=== PATIENT | female | born 1970 | race Caucasian/White ===

== ENCOUNTER → 2016-11-16 | Outpatient (REF) | payer BC, OTHER ==
[~2016-11-16] MED LIST: AMMO12LO EX; CLON0.5T PO; CYMB60CA3 PO; DULO30CA PO; HYOS1TAB SL; KLON0.5T PO; LEVO150T7 PO; PANT40TA2 PO; SYNT150T PO; TRAZ50TA4 PO; VENL75CA47 PO; ZALE10CA PO
[2016-11-16 12:36] LABS: BASO % 0.5 % (0.0-1.0); EOS # 0.1 K/mm3 (0.0-0.50); EOS % 2.1 % (0.0-3.0); LARGE UNSTAINED CELL # 0.1 K/mm3 (0.0-0.4); LARGE UNSTAINED CELL % 2.5 % (0.0-4.0); LYMPH # 0.7 K/mm3 (1.5-4.5); LYMPH % 16.3 % (24.0-44.0); MEAN CORPUSCULAR HEMOGLOBIN 29.8 pg (27.0-33.0); MEAN CORPUSCULAR HGB CONC 33.7 g/dl (32.0-36.5); MEAN CORPUSCULAR VOLUME 88.6 fl (80.0-96.0); MONO # 0.3 K/mm3 (0.0-0.8); NEUTROPHILS # 3.1 K/mm3 (1.8-7.7); NEUTROPHILS % 71.5 % (36.0-66.0); PLATELET COUNT, AUTOMATED 295 k/mm3 (150-450); RED CELL DISTRIBUTION WIDTH 13.3 % (11.5-14.5); WHITE BLOOD COUNT 4.3 K/mm3 (4.0-10.0)
[2016-11-16 13:30] LABS: ALBUMIN/GLOBULIN RATIO 1.14 (1.00-1.93); ALKALINE PHOSPHATASE 70 U/L (45-117); ALT/SGPT 18 U/L (12-78); ANION GAP 9 MEQ/L (8-16); AST/SGOT 10 U/L (15-37); BILIRUBIN,TOTAL 0.4 MG/DL (0.2-1.0); BLOOD UREA NITROGEN 26 MG/DL (7-18); CALCIUM LEVEL 8.6 MG/DL (8.5-10.1); CARBON DIOXIDE LEVEL 24 MEQ/L (21-32); CHLORIDE LEVEL 108 MEQ/L (98-107); CHOLESTEROL LEVEL 222 MG/DL (<200); CREATININE FOR GFR 0.74 MG/DL (0.55-1.02); FREE T4 1.52 NG/DL (0.76-1.46); GLOMERULAR FILTRATION RATE > 60.0 (>58); GLUCOSE, FASTING 85 MG/DL (70-105); POTASSIUM SERUM 4.2 MEQ/L (3.5-5.1); SODIUM LEVEL 141 MEQ/L (136-145); TOTAL PROTEIN 7.5 GM/DL (6.4-8.2); TRIGLYCERIDES LEVEL 76 MG/DL (<150)
== END | disposition home or self-care (01) ==
LOC: M LABDRAW1 11:57
PROVIDERS: ATTEND Emergency Medicine
DX: E03.9 Hypothyroidism, unspecified (principal)

== ENCOUNTER → 2016-12-22 | Outpatient (CLI) | payer OTHER ==
--- NOTE | 2016-12-26 17:04 | REP ---
Clinical: Right lower quadrant pain. Technique: Transabdominal pelvic ultrasound followed by transvaginal examination for better evaluation of the endometrium and adnexa. Findings: Bladder is normal and measures 9.1 x 7.0 x 8.0 cm. The patient is status post hysterectomy and likely oophorectomy as the ovaries are not visualized. No pelvic fluid, collection or mass lesion identified. Impression: Status post hysterectomy. Ovaries not visualized. No fluid, collection or mass lesion appreciated.
== END | disposition home or self-care (01) ==
LOC: M WHC 08:07
PROVIDERS: ATTEND Nurse Practitioner Family
DX: R10.31 Right lower quadrant pain (principal); Z90.710 Acquired absence of both cervix and uterus

== ENCOUNTER → 2017-07-12 | Outpatient (REF) | payer OTHER ==
[~2017-07-12] MED LIST changes: +TRAZ50TA11 PO; -TRAZ50TA4 PO
[2017-07-12 13:02] LABS: BASO % 0.5 % (0.0-1.0); EOS # 0.2 K/mm3 (0.0-0.50); EOS % 3.3 % (0.0-3.0); LARGE UNSTAINED CELL # 0.1 K/mm3 (0.0-0.4); LARGE UNSTAINED CELL % 1.4 % (0.0-4.0); LYMPH # 0.8 K/mm3 (1.5-4.5); LYMPH % 16.6 % (24.0-44.0); MEAN CORPUSCULAR HEMOGLOBIN 29.5 pg (27.0-33.0); MEAN CORPUSCULAR HGB CONC 32.3 g/dl (32.0-36.5); MEAN CORPUSCULAR VOLUME 91.4 fl (80.0-96.0); MONO # 0.2 K/mm3 (0.0-0.8); NEUTROPHILS # 3.3 K/mm3 (1.8-7.7); NEUTROPHILS % 73.2 % (36.0-66.0); PLATELET COUNT, AUTOMATED 268 k/mm3 (150-450); RED CELL DISTRIBUTION WIDTH 13.6 % (11.5-14.5); WHITE BLOOD COUNT 4.5 K/mm3 (4.0-10.0)
[2017-07-12 14:30] LABS: ALBUMIN 3.5 GM/DL (3.2-5.2); ALBUMIN/GLOBULIN RATIO 1.03 (1.00-1.93); ALKALINE PHOSPHATASE 68 U/L (45-117); ALT/SGPT 18 U/L (12-78); ANION GAP 10 MEQ/L (8-16); AST/SGOT 9 U/L (15-37); BILIRUBIN,TOTAL 0.5 MG/DL (0.2-1.0); BLOOD UREA NITROGEN 17 MG/DL (7-18); CALCIUM LEVEL 8.4 MG/DL (8.5-10.1); CARBON DIOXIDE LEVEL 25 MEQ/L (21-32); CHLORIDE LEVEL 105 MEQ/L (98-107); CHOLESTEROL LEVEL 214 MG/DL (<200); FREE T4 0.95 NG/DL (0.76-1.46); GLOMERULAR FILTRATION RATE > 60.0 (>58); GLUCOSE, FASTING 80 MG/DL (70-105); POTASSIUM SERUM 4.5 MEQ/L (3.5-5.1); SODIUM LEVEL 140 MEQ/L (136-145); TOTAL PROTEIN 6.9 GM/DL (6.4-8.2); TRIGLYCERIDES LEVEL 112 MG/DL (<150)
== END ==
LOC: M LABDRAW1 10:22
PROVIDERS: ATTEND Emergency Medicine
DX: E03.9 Hypothyroidism, unspecified (principal); R53.83 Other fatigue

== ENCOUNTER → 2017-08-21 | Outpatient (REF) | payer OTHER | LOC: M SFHCWAGY 13:07 | PROVIDERS: ATTEND Nurse Practitioner Family | DX: A60.04 Herpesviral vulvovaginitis (principal); R30.0 Dysuria ==

== ENCOUNTER → 2017-10-02 | Outpatient (REF) | payer OTHER ==
[2017-10-02 12:57] LABS: FREE T4 1.2 NG/DL (0.76-1.46)
== END ==
LOC: M LABDRAW1 10:42
PROVIDERS: ATTEND Emergency Medicine
DX: E03.9 Hypothyroidism, unspecified (principal)

== ENCOUNTER → 2017-11-16 | Outpatient (REF) | payer OTHER ==
[2017-11-16 12:58] LABS: C REACTIVE PROTEIN QUANTITATIV 0.39 MG/DL (0.00-0.30)
[2017-11-16 12:58] LABS: RHEUMATOID FACTOR QUANT < 10.0 IU/ML (0-15.0)
[2017-11-16 13:07] LABS: BASO % 0.7 % (0.0-1.0); EOS # 0.2 10^3/uL (0.0-0.50); EOS % 2.6 % (0.0-3.0); HEMATOCRIT 35.8 % (36.0-47.0); HEMOGLOBIN 11.6 g/dl (12.0-16.0); IMMATURE GRANULOCYTE % 0.3 % (0-0); LYMPH # 0.9 10^3/uL (1.5-4.5); LYMPH % 14.1 % (24.0-44.0); MEAN CORPUSCULAR HEMOGLOBIN 28.9 pg (27.0-33.0); MEAN CORPUSCULAR HGB CONC 32.4 g/dl (32.0-36.5); MEAN CORPUSCULAR VOLUME 89.1 fl (80.0-96.0); MONO # 0.4 10^3/uL (0.0-0.8); MONO % 6.9 % (0.0-5.0); NEUTROPHILS # 4.6 10^3/uL (1.8-7.7); NEUTROPHILS % 75.4 % (36.0-66.0); PLATELET COUNT, AUTOMATED 292 10^3/uL (150-450); RED BLOOD COUNT 4.02 10^6/uL (4.00-5.40); RED CELL DISTRIBUTION WIDTH 13.5 % (11.5-14.5); WHITE BLOOD COUNT 6.1 10^3/uL (4.0-10.0)
[2017-11-16 13:54] LABS: ERYTHROCYTE SEDIMENTATION RATE 14 mm/hr (0-20)
[2017-11-18 00:07] LABS: ANA (HEP2) Positive (.)
== END ==
LOC: M LABDRAW1 11:44
DX: M25.549 Pain in joints of unspecified hand (principal)
CPT/HCPCS: 36415

== ENCOUNTER → 2018-08-20 | Outpatient (REF) | payer BC ==
[2018-08-20 12:44] LABS: BASO % 0.8 % (0.0-1.0); EOS # 0.1 10^3/uL (0.0-0.50); EOS % 2.8 % (0.0-3.0); HEMATOCRIT 37.3 % (36.0-47.0); HEMOGLOBIN 12.1 g/dl (12.0-15.5); IMMATURE GRANULOCYTE % 0.8 % (0-3.0); LYMPH # 0.8 10^3/uL (1.5-4.5); LYMPH % 16.7 % (24.0-44.0); MEAN CORPUSCULAR HEMOGLOBIN 29.1 pg (27.0-33.0); MEAN CORPUSCULAR HGB CONC 32.4 g/dl (32.0-36.5); MEAN CORPUSCULAR VOLUME 89.7 fl (80.0-96.0); MONO # 0.4 10^3/uL (0.0-0.8); MONO % 8.2 % (0.0-5.0); NEUTROPHILS # 3.6 10^3/uL (1.8-7.7); NEUTROPHILS % 70.7 % (36.0-66.0); PLATELET COUNT, AUTOMATED 323 10^3/uL (150-450); RED BLOOD COUNT 4.16 10^6/uL (4.00-5.40); RED CELL DISTRIBUTION WIDTH 13.5 % (11.5-14.5)
[2018-08-20 13:05] LABS: ALBUMIN 3.8 GM/DL (3.2-5.2); ALBUMIN/GLOBULIN RATIO 1.03 (1.00-1.93); ALKALINE PHOSPHATASE 75 U/L (45-117); ALT/SGPT 19 U/L (12-78); ANION GAP 5 MEQ/L (8-16); AST/SGOT 10 U/L (7-37); BILIRUBIN,TOTAL 0.5 MG/DL (0.2-1.0); BLOOD UREA NITROGEN 16 MG/DL (7-18); CALCIUM LEVEL 8.8 MG/DL (8.5-10.1); CARBON DIOXIDE LEVEL 27 MEQ/L (21-32); CHLORIDE LEVEL 108 MEQ/L (98-107); CHOLESTEROL LEVEL 196 MG/DL (<200); CHOLESTEROL RISK RATIO 4.454 (<5); CREATININE FOR GFR 0.67 MG/DL (0.55-1.30); FREE T4 1.37 NG/DL (0.76-1.46); GLOMERULAR FILTRATION RATE > 60.0 (>58); GLUCOSE, FASTING 83 MG/DL (70-100); HDL CHOLESTEROL 44 MG/DL (>40); LDL CHOLESTEROL 134 MG/DL (<100); NON-HDL-C 152 MG/DL; POTASSIUM SERUM 4.8 MEQ/L (3.5-5.1); SODIUM LEVEL 140 MEQ/L (136-145); THYROID STIMULATING HORMONE 0.094 uIU/ML (0.358-3.740); TOTAL PROTEIN 7.5 GM/DL (6.4-8.2); TRIGLYCERIDES LEVEL 88 MG/DL (<150)
== END ==
LOC: M LABDRAW1 11:40
DX: E03.9 Hypothyroidism, unspecified (principal); R00.2 Palpitations

== ENCOUNTER → 2018-11-12 | Outpatient (CLI) | payer BC ==
[~2018-11-12] MED LIST changes: -CLON0.5T PO; +CLON0.5T8 PO; -PANT40TA2 PO; +PANT40TA3 PO; +TRAZ-160 PO; -TRAZ50TA11 PO
--- NOTE | 2018-11-12 10:46 | REP ---
LUMBAR SPINE, FIVE VIEWS: HISTORY: Back pain. Three is no acute fracture or subluxation. The L3-4 and L4-5 intervertebral discs are decreased in height consistent with disc degeneration. There is narrowing of the L5-S1 facet joints. IMPRESSION: Degenerative change as described above. Electronically Signed by Nirmal Marroquin MD 11/12/2018 11:28 A
== END ==
LOC: M WUC 10:14
PROVIDERS: ATTEND Physician Assistant
DX: M51.37 Other intervertebral disc degeneration, lumbosacral region (principal)

== ENCOUNTER → 2018-11-18 | Outpatient (REF) | payer BC ==
[2018-11-18 13:54] LABS: FREE T4 1.26 NG/DL (0.76-1.46); THYROID STIMULATING HORMONE 0.523 uIU/ML (0.358-3.740)
== END ==
LOC: M SFHCADAM 11:13
PROVIDERS: ATTEND Family Medicine
DX: E03.9 Hypothyroidism, unspecified (principal)

== ENCOUNTER → 2018-11-19 | Outpatient (REF) | payer BC | LOC: M SFHCWAGY 08:28 | PROVIDERS: ATTEND Nurse Practitioner Family | DX: Z12.72 Encounter for screening for malignant neoplasm of vagina (principal) ==

== ENCOUNTER → 2018-11-19 | Outpatient (CLI) | payer BC ==
--- NOTE | 2018-11-19 12:23 | REPMRS ---
Patient History The patient states she had a clinical breast exam in 11/2018. Patient is postmenopausal. Family history of colorectal cancer at age 50 or over in paternal grandfather, breast cancer at age 62 in mother. Digital Woman Screen Mammo: November 19, 2018 - Exam #: [id number] Bilateral CC and MLO view(s) were taken. Technologist: Amaya Gao Technologist Prior study comparison: November 21, 2016, bilateral digital woman screen mammo, performed at [facility]. April 09, 2015, bilateral digital woman screen mammo, performed at [facility]. May 29, 2012, digital woman screen mammo performed at [facility]. FINDINGS: The breast tissue is heterogeneously dense. This may lower the sensitivity of mammography. There is a moderate amount of heterogeneously dense fibroglandular tissue which is fairly symmetric. There is no interval development of dominant mass, architectural distortion, or clustered microcalcification typical of malignancy. There has been no change in the appearance of the mammogram from the prior studies. 3-D tomosynthesis shows no additional findings. Assessment: BI-RADS/ACR category 1 mammogram. Negative. Recommendation Routine screening mammogram of both breasts in 1 year (for women over age 40). This patient's Lifetime Breast Cancer RIsk is estimated at 17.4 %. This mammogram was interpreted with the aid of an FDA-approved computer-aided dectection system. Electronically Signed By: Car Harrison MD 11/19/18 [id number]
== END ==
LOC: M WHC 08:00
PROVIDERS: ATTEND Nurse Practitioner Family
DX: Z12.31 Encounter for screening mammogram for malignant neoplasm of breast (principal); Z80.3 Family history of malignant neoplasm of breast; Z80.0 Family history of malignant neoplasm of digestive organs; N60.31 Fibrosclerosis of right breast; N60.32 Fibrosclerosis of left breast

== ENCOUNTER → 2019-01-14 | Outpatient (CLI) | payer BC | LOC: M OUTALCOH 08:06 | PROVIDERS: ATTEND Psychiatry & Neurology Psychiatry | DX: F10.20 Alcohol dependence, uncomplicated (principal) ==

== ENCOUNTER 2019-01-21 08:51 | Outpatient (RCR) | payer BC | END 2019-02-02 | LOC: M OUTALCOH 08:51 | PROVIDERS: ATTEND Psychiatry & Neurology Psychiatry | DX: Z03.89 Encounter for observation for other suspected diseases and conditions ruled out (principal) ==

== ENCOUNTER → 2019-03-18 | Outpatient (REF) | payer BC ==
[~2019-03-18] MED LIST changes: -DULO30CA PO; +DULO30CA9 PO
[2019-03-18 12:34] LABS: HEMATOCRIT 36.8 % (36.0-47.0); HEMOGLOBIN 11.6 g/dl (12.0-15.5); MEAN CORPUSCULAR HEMOGLOBIN 28.4 pg (27.0-33.0); MEAN CORPUSCULAR HGB CONC 31.5 g/dl (32.0-36.5); MEAN CORPUSCULAR VOLUME 90.2 fl (80.0-96.0); PLATELET COUNT, AUTOMATED 284 10^3/uL (150-450); RED BLOOD COUNT 4.08 10^6/uL (4.00-5.40); WHITE BLOOD COUNT 5.2 10^3/uL (4.0-10.0)
[2019-03-18 13:10] LABS: ALBUMIN 3.5 GM/DL (3.2-5.2); ALT/SGPT 17 U/L (12-78); BILIRUBIN,TOTAL 0.3 MG/DL (0.2-1.0); BLOOD UREA NITROGEN 14 MG/DL (7-18); CALCIUM LEVEL 8.3 MG/DL (8.5-10.1); CARBON DIOXIDE LEVEL 27 MEQ/L (21-32); CHLORIDE LEVEL 107 MEQ/L (98-107); CREATININE FOR GFR 0.65 MG/DL (0.55-1.30); GLOMERULAR FILTRATION RATE > 60.0 (>58); GLUCOSE, FASTING 91 MG/DL (70-100); POTASSIUM SERUM 4.8 MEQ/L (3.5-5.1); SODIUM LEVEL 140 MEQ/L (136-145); TOTAL PROTEIN 7.2 GM/DL (6.4-8.2)
== END ==
LOC: M SFHCADAM 08:10
PROVIDERS: ATTEND Family Medicine
DX: E66.9 Obesity, unspecified (principal); E03.9 Hypothyroidism, unspecified

== ENCOUNTER → 2019-03-21 | Outpatient (REF) | payer BC ==
[2019-03-21 14:24] LABS: FREE T4 1.39 NG/DL (0.76-1.46); THYROID STIMULATING HORMONE 0.271 uIU/ML (0.358-3.740)
== END ==
LOC: M SFHCADAM 08:00
PROVIDERS: ATTEND Family Medicine
DX: R79.89 Other specified abnormal findings of blood chemistry (principal)

== ENCOUNTER → 2019-04-14 | Outpatient (CLI) | payer BC ==
[~2019-04-14] MED LIST changes: -TRAZ-160 PO; +TRAZ-252 PO
--- NOTE | 2019-04-14 13:40 | REP ---
Bilateral hand series: Eight views. History: Primary osteoarthritis. Findings: Overall mineralization pattern is normal. On the left, there is osteoarthritic narrowing and spurring at the first carpometacarpal articulation. Minimal spurring is seen at the IP joint of the thumb. There is osteoarthritic spurring at the DIP joints of the index, ring, and small finger with joint space narrowing at these articulations. No erosive change is seen. On the right, there are fairly prominent osteophytes formed at the DIP joint of the small finger. Minimal spurring is seen at the DIP joint of the index finger and the IP joint of the thumb. There is mild spurring at the MCP joint of the thumb on the right side as well. No erosive changes are seen. IMPRESSION: Bilateral osteoarthritic changes as noted above. Electronically Signed by Jay Harrison MD 04/14/2019 03:47 P
--- NOTE | 2019-04-14 13:43 | REP ---
SI joint series: Four views. History: Degenerative disc disease in the lumbar spine. Findings: There is minimal sclerosis and osteoarthritic spurring bilaterally. No erosive changes seen. There is a small subcortical cyst on the iliac side of each SI joint. Sacrum and SI joints are otherwise intact. Femoral heads are smooth and rounded and hip joint spaces are preserved. Symphysis pubis appears intact as visualized. Impression: Mild osteoarthritic changes. No erosive change. Electronically Signed by Jay Harrison MD 04/14/2019 03:48 P
== END ==
LOC: M ADAMS 11:06
PROVIDERS: ATTEND Internal Medicine Rheumatology
DX: M51.36 Other intervertebral disc degeneration, lumbar region (principal); M19.042 Primary osteoarthritis, left hand; M19.041 Primary osteoarthritis, right hand; M25.78 Osteophyte, vertebrae

== ENCOUNTER → 2019-04-14 | Outpatient (REF) | payer BC ==
[2019-04-17 00:06] LABS: ANA (HEP2) Positive (.); CYCLIC CITRULLINATED PEPTIDE 7 units (0-19); SSA SJOGRENS A <0.2 AI (0.0-0.9); SSB SJOGRENS B <0.2 AI (0.0-0.9)
== END ==
LOC: M SFHCPLAZ 11:07 → M SFHCADAM 11:12
PROVIDERS: ATTEND Internal Medicine Rheumatology
DX: R76.8 Other specified abnormal immunological findings in serum (principal)

== ENCOUNTER → 2019-05-26 | Outpatient (REF) | payer BC ==
[2019-05-26 13:22] LABS: FREE T4 1.12 NG/DL (0.76-1.46); THYROID STIMULATING HORMONE 0.38 uIU/ML (0.358-3.740)
== END ==
LOC: M SFHCADAM 10:08
PROVIDERS: ATTEND Family Medicine
DX: E03.9 Hypothyroidism, unspecified (principal)

== ENCOUNTER → 2019-11-02 | Outpatient (REF) | payer BC ==
[~2019-11-02] MED LIST changes: +CLON0.5T2 PO; -CLON0.5T8 PO
== END ==
LOC: M LAB REF 13:10
PROVIDERS: ATTEND Physician Assistant
DX: N39.0 Urinary tract infection, site not specified (principal)

== ENCOUNTER → 2020-03-30 | Outpatient (REF) | payer BC | LOC: M SFHCADAM 09:34 | PROVIDERS: ATTEND Family Medicine | DX: Z00.00 Encounter for general adult medical examination without abnormal findings (principal); F41.9 Anxiety disorder, unspecified ==

== ENCOUNTER → 2020-04-15 | Outpatient (CLI) | payer BC | LOC: M LABSMTC 13:21 | PROVIDERS: ATTEND Pediatrics | DX: Z03.818 Encounter for observation for suspected exposure to other biological agents ruled out (principal); Z11.59 Encounter for screening for other viral diseases ==

== ENCOUNTER → 2020-06-16 | Outpatient (REF) | payer BC ==
[~2020-06-16] MED LIST changes: +PANT40TA29 PO; -PANT40TA3 PO
[2020-07-29 08:53] LABS: FREE T4 1.32 NG/DL (0.76-1.46); THYROID STIMULATING HORMONE 0.918 uIU/ML (0.358-3.740)
== END ==
LOC: M SFHCADAM 12:55
PROVIDERS: ATTEND Family Medicine
DX: E03.9 Hypothyroidism, unspecified (principal)

== ENCOUNTER → 2020-07-29 | Outpatient (CLI) | payer BC ==
--- NOTE | 2020-08-04 11:33 | REP ---
BILATERAL MAMMOGRAM WITH 3D TOMOSYNTHESIS, DIAGNOSTIC MAMMOGRAM LEFT BREAST AND LEFT BREAST ULTRASOUND HISTORY: Family history of breast cancer at age 62 in mother. Tyrer-Cuzick lifetime risk of breast cancer 17.1%. Sore palpable lump upper outer quadrant left breast for two days. COMPARISON: Mammogram 11/19/2018, as well as other prior exams. TECHNIQUE: MLO and CC views of the breasts are performed with 3D tomosynthesis. Additional spot compression views of the left breast are performed at the site of the palpable lump in the upper outer quadrant of the left breast. The area is marked on the skin with a triangular marker. FINDINGS: Moderate fibroglandular tissue is seen bilaterally in a fairly symmetrical pattern. Volpara breast density is B. I see no evidence of mass in either breast. There is no architectural distortion. No clustered microcalcifications are seen. Real-time sonographic evaluation of the left breast is performed at the site of the palpable lump in the upper outer quadrant. At about 3 o'clock, there is a 9- mm cyst corresponding to the palpable abnormality. No other cystic or solid nodule is seen. IMPRESSION: ACR 2 benign. There is no mammographic evidence of mass or suspicious clusters of microcalcifications. At the site of the palpable lump laterally in the left breast at about 3 o'clock, there is a 9-mm cyst with no other sonographic abnormality. The finding is benign. Recommend follow-up mammogram in one year. This mammogram was interpreted with the aid of an FDA approved computer-aided detection system. The patient states her last clinical breast exam was 07/2020. Patient letter: 2. ESTEFANIA
== END ==
LOC: M WHC 14:01
PROVIDERS: ATTEND Nurse Practitioner Family
DX: N63.21 Unspecified lump in the left breast, upper outer quadrant (principal); Z80.3 Family history of malignant neoplasm of breast
CPT/HCPCS: 76642; 77066; G0279

== ENCOUNTER → 2020-11-19 | Outpatient (REF) | payer BC ==
[2020-11-19 13:00] LABS: BASO % 0.4 % (0.0-1.0); EOS # 0.1 10^3/uL (0.0-0.5); EOS % 2.7 % (0.0-3.0); HEMATOCRIT 38.5 % (36.0-47.0); HEMOGLOBIN 12.3 g/dl (12.0-15.5); LYMPH # 0.8 10^3/uL (1.5-5.0); LYMPH % 14.4 % (24.0-44.0); MEAN CORPUSCULAR HEMOGLOBIN 28.9 pg (27.0-33.0); MEAN CORPUSCULAR HGB CONC 31.9 g/dl (32.0-36.5); MEAN CORPUSCULAR VOLUME 90.6 fl (80.0-96.0); MONO # 0.4 10^3/uL (0.0-0.8); MONO % 8.3 % (0.0-5.0); NEUTROPHILS # 3.9 10^3/uL (1.5-8.5); NEUTROPHILS % 73.8 % (36.0-66.0); PLATELET COUNT, AUTOMATED 266 10^3/uL (150-450); RED BLOOD COUNT 4.25 10^6/uL (4.00-5.40); WHITE BLOOD COUNT 5.3 10^3/uL (4.0-10.0)
[2020-11-19 13:37] LABS: ALT/SGPT 28 U/L (12-78); BILIRUBIN,TOTAL 0.4 MG/DL (0.2-1.0); BLOOD UREA NITROGEN 18 MG/DL (7-18); CALCIUM LEVEL 8.8 MG/DL (8.5-10.1); CARBON DIOXIDE LEVEL 28 MEQ/L (21-32); CHLORIDE LEVEL 104 MEQ/L (98-107); CHOLESTEROL LEVEL 212 MG/DL (<200); CHOLESTEROL RISK RATIO 3.072 (<5); CREATININE FOR GFR 0.87 MG/DL (0.55-1.30); GLOMERULAR FILTRATION RATE > 60.0 (>51); GLUCOSE, FASTING 87 MG/DL (70-100); HDL CHOLESTEROL 69 MG/DL (>40); LDL CHOLESTEROL 124 MG/DL (<100); NON-HDL-C 143 MG/DL; POTASSIUM SERUM 4.5 MEQ/L (3.5-5.1); SODIUM LEVEL 138 MEQ/L (136-145); TOTAL PROTEIN 7.6 GM/DL (6.4-8.2); TRIGLYCERIDES LEVEL 94 MG/DL (<150)
== END ==
LOC: M SFHCADAM 08:52
PROVIDERS: ATTEND Family Medicine
DX: E03.9 Hypothyroidism, unspecified (principal); E66.9 Obesity, unspecified; R53.83 Other fatigue

== ENCOUNTER → 2021-03-10 | Outpatient (REF) | payer BC | LOC: M SFHCADAM 07:53 | PROVIDERS: ATTEND Family Medicine | DX: E03.9 Hypothyroidism, unspecified (principal) ==

== ENCOUNTER → 2021-04-27 | Outpatient (CLI) | payer BC ==
--- NOTE | 2021-04-28 15:39 | SLEEPCENT ---
NOCTURNAL POLYSOMNOGRAPHY DATE: 04/27/2021 ORDERED BY: EVELYN Brambila Nocturnal polysomnography was performed for evaluation of sleep physiology in this patient with a history of excessive somnolence, irregular breathing in sleep and nonrestorative sleep. Eight hours and 15 minutes of data were reviewed. There were 443.5 minutes of sleep identified. Sleep latency was normal at 13.5 minutes. REM latency was normal at 100.5 minutes. Sleep architecture showed fragmentation. There were three REM cycles noted. Overall sleep efficiency was 90.5%. The electrocardiogram showed a sinus rhythm with an average heart rate of 60 beats per minute. Rate ranged 50 to 90 beats per minute. EEG showed reasonably normal waveforms for wake and sleep. There were 95 respiratory events identified of 10 seconds in duration or greater for an apnea-hypopnea index of 12.9. The events were primarily obstructive, 15 mixed and central apneas noted. Respiratory events were not exclusive to sleep stage nor body posture. Arousals from respiratory events occurred 6.5 times per hour and oxygen desaturations were seen into the 80s. There was some minor limb activity. No trains of events identified. IMPRESSIONS: Obstructive sleep apnea syndrome (G47.33). Apnea-hypopnea index 12.9. RECOMMENDATION: The patient should be encouraged to return to [facility]. In the interim alcohol and sedative avoidance should be practiced and caution exercised during the operation of motor vehicles. cc: ARABELLA CHOW DO
== END ==
LOC: M SLEEP 20:00
PROVIDERS: ATTEND Physician Assistant
DX: R40.0 Somnolence (principal)

== ENCOUNTER → 2021-05-05 | Outpatient (REF) | payer BC | LOC: M WUC 15:37 | PROVIDERS: ATTEND Physician Assistant | DX: N39.0 Urinary tract infection, site not specified (principal) ==

== ENCOUNTER → 2021-06-20 | Outpatient (REF) | payer BC ==
[2021-06-20 13:21] LABS: FREE T4 1.26 NG/DL (0.76-1.46); THYROID STIMULATING HORMONE 0.367 uIU/ML (0.358-3.740)
== END ==
LOC: M SFHCADAM 09:29
PROVIDERS: ATTEND Family Medicine
DX: E03.9 Hypothyroidism, unspecified (principal)

== ENCOUNTER → 2021-11-14 | Outpatient (REF) | payer BC ==
[~2021-11-14] MED LIST changes: -CYMB60CA3 PO; +CYMB60CA4 PO
== END ==
LOC: M SFHCADAM 12:42
PROVIDERS: ATTEND Family Medicine
DX: R35.0 Frequency of micturition (principal)

== ENCOUNTER → 2021-11-16 | Outpatient (REF) | payer BC ==
[2021-11-16 12:54] LABS: BASO % 0.8 % (0.0-1.0); HEMATOCRIT 37.9 % (36.0-47.0); HEMOGLOBIN 12.1 g/dl (12.0-15.5); LYMPH % 19.7 % (24.0-44.0); MEAN CORPUSCULAR HEMOGLOBIN 30.3 pg (27.0-33.0); MEAN CORPUSCULAR HGB CONC 31.9 g/dl (32.0-36.5); MONO # 0.4 10^3/uL (0.0-0.8); MONO % 8.4 % (2.0-8.0); NEUTROPHILS # 3.4 10^3/uL (1.5-8.5); NEUTROPHILS % 70.5 % (36.0-66.0); PLATELET COUNT, AUTOMATED 266 10^3/uL (150-450); RED BLOOD COUNT 3.99 10^6/uL (4.00-5.40); WHITE BLOOD COUNT 4.9 10^3/uL (4.0-10.0)
[2021-11-16 14:07] LABS: ALBUMIN 3.8 GM/DL (3.2-5.2); ALT/SGPT 23 U/L (12-78); BILIRUBIN,TOTAL 0.4 MG/DL (0.2-1.0); BLOOD UREA NITROGEN 18 MG/DL (7-18); CALCIUM LEVEL 8.7 MG/DL (8.5-10.1); CARBON DIOXIDE LEVEL 27 MEQ/L (21-32); CHLORIDE LEVEL 107 MEQ/L (98-107); CHOLESTEROL LEVEL 216 MG/DL (<200); CHOLESTEROL RISK RATIO 4.075 (<5); CREATININE FOR GFR 0.92 MG/DL (0.55-1.30); GLOMERULAR FILTRATION RATE > 60.0 (>51); GLUCOSE, FASTING 97 MG/DL (70-100); HDL CHOLESTEROL 53 MG/DL (>40); LDL CHOLESTEROL 142 MG/DL (<100); NON-HDL-C 163 MG/DL; POTASSIUM SERUM 4.4 MEQ/L (3.5-5.1); SODIUM LEVEL 141 MEQ/L (136-145); TOTAL PROTEIN 7.5 GM/DL (6.4-8.2); TRIGLYCERIDES LEVEL 103 MG/DL (<150)
== END ==
LOC: M SFHCADAM 11:16
PROVIDERS: ATTEND Family Medicine
DX: Z00.00 Encounter for general adult medical examination without abnormal findings (principal); R35.0 Frequency of micturition

== ENCOUNTER 2021-12-12 21:30 | Emergency (ER) | payer BC ==
[~2021-12-12] VITALS: Ht 167.6 cm; Wt 88.6 kg
[2021-12-13 00:13] VITALS: BP 139/67
== END 2021-12-13 01:58 | disposition home or self-care (01) ==
LOC: M ED 21:30
DX: H66.019 Acute suppurative otitis media with spontaneous rupture of ear drum, unspecified ear (principal); F10.10 Alcohol abuse, uncomplicated

== ENCOUNTER → 2022-08-17 | Outpatient (REF) | payer BC ==
[2022-08-17 14:47] LABS: FREE T4 1.42 NG/DL (0.76-1.46); THYROID STIMULATING HORMONE 1.31 uIU/ML (0.358-3.740)
== END ==
LOC: M SFHCADAM 12:28
PROVIDERS: ATTEND Family Medicine
DX: E03.9 Hypothyroidism, unspecified (principal)

== ENCOUNTER → 2022-12-25 | Outpatient (CLI) | payer BC ==
[~2022-12-25] MED LIST changes: +D-101000 PO; +FLUO20CA22 PO; +LEVO125T4 PO
== END ==
LOC: M LABSMTC 08:18
PROVIDERS: ATTEND Anesthesiology
DX: Z01.812 Encounter for preprocedural laboratory examination (principal); Z11.52 Encounter for screening for COVID-19

== ENCOUNTER 2022-12-27 08:23 | Day surgery (SDC) | payer BC ==
[~2022-12-27] VITALS: Ht 167.6 cm; Wt 78.5 kg
[~2022-12-27 08:23] MED LIST changes: +NS 1,000 ML IV ONE
[2022-12-27] MEDS ORDERED: LIDOCAINE 2% 100MG/5ML SDV (FOR ANES.) As Ordered ONE (09:32)
[2022-12-27] MEDS ORDERED: propofoL 200 MG/20 ML VIAL As Ordered ONE ×2 (09:32→09:43)
[2022-12-27 10:17] VITALS: BP 108/67
== END 2022-12-27 10:31 | disposition home or self-care (01) ==
LOC: M OPP 08:23
PROVIDERS: ATTEND Surgery
DX: Z12.11 Encounter for screening for malignant neoplasm of colon (principal); K63.5 Polyp of colon; K64.0 First degree hemorrhoids; G47.33 Obstructive sleep apnea (adult) (pediatric); E03.9 Hypothyroidism, unspecified; F32.9 Major depressive disorder, single episode, unspecified; F41.9 Anxiety disorder, unspecified; Z99.89 Dependence on other enabling machines and devices; Z79.891 Long term (current) use of opiate analgesic; Z79.899 Other long term (current) drug therapy

== ENCOUNTER → 2023-04-24 | Outpatient (REF) | payer BC ==
[~2023-04-24] MED LIST changes: -NS 1,000 ML IV ONE
[2023-04-24 18:01] LABS: BASO # 0.1 10^3/uL (0.0-0.2); BASO % 0.8 % (0.0-1.0); EOS # 0.1 10^3/uL (0.0-0.5); HEMATOCRIT 40.9 % (36.0-47.0); LYMPH % 15.7 % (24.0-44.0); MEAN CORPUSCULAR HEMOGLOBIN 30.7 pg (27.0-33.0); MEAN CORPUSCULAR HGB CONC 31.8 g/dl (32.0-36.5); MEAN CORPUSCULAR VOLUME 96.7 fl (80.0-96.0); MONO # 0.4 10^3/uL (0.0-0.8); MONO % 6.9 % (2.0-8.0); NEUTROPHILS # 4.5 10^3/uL (1.5-8.5); NEUTROPHILS % 73.8 % (36.0-66.0); PLATELET COUNT, AUTOMATED 336 10^3/uL (150-450); RED BLOOD COUNT 4.23 10^6/uL (4.00-5.40); WHITE BLOOD COUNT 6.1 10^3/uL (4.0-10.0)
[2023-04-24 18:18] LABS: ALBUMIN 4.2 G/DL (3.2-5.2); ALKALINE PHOSPHATASE 80 U/L (46-116); ALT/SGPT 15 U/L (7.0-40); AST/SGOT 10 U/L (<34); BILIRUBIN,TOTAL 0.4 MG/DL (0.3-1.2); BLOOD UREA NITROGEN 20 MG/DL (9-23); CARBON DIOXIDE LEVEL 27 MMOL/L (20-31); CHLORIDE LEVEL 104 MMOL/L (98-107); CHOLESTEROL LEVEL 213 MG/DL (<200); CHOLESTEROL RISK RATIO 3.11 (<5); CREATININE FOR GFR 0.87 MG/DL (0.55-1.30); GLOMERULAR FILTRATION RATE > 60.0 (>51); GLUCOSE, FASTING 79 MG/DL (60-100); HDL CHOLESTEROL 68.4 MG/DL (>40); LDL CHOLESTEROL 119.4 MG/DL (<100); NON-HDL-C 144.6 MG/DL; POTASSIUM SERUM 4.8 MMOL/L (3.5-5.1); SODIUM LEVEL 139 MMOL/L (136-145); THYROID STIMULATING HORMONE 1.343 uIU/ML (0.55-4.78); TOTAL 25(OH) VITAMIN D 18.1 NG/ML (20.0-100.0); TOTAL PROTEIN 7.4 G/DL (5.7-8.2); TRIGLYCERIDES LEVEL 126 MG/DL (<150)
[2023-04-24 18:20] LABS: FREE T4 1.24 NG/DL (0.89-1.76)
== END ==
LOC: M LAB REF 17:18
PROVIDERS: ATTEND Internal Medicine
DX: F33.0 Major depressive disorder, recurrent, mild (principal); E03.9 Hypothyroidism, unspecified; G47.00 Insomnia, unspecified

== ENCOUNTER → 2023-07-23 | Outpatient (REF) | payer BC ==
[2023-07-23 20:40] LABS: THYROID STIMULATING HORMONE 0.915 uIU/ML (0.55-4.78)
[2023-07-23 20:43] LABS: FREE T4 1.24 NG/DL (0.89-1.76)
== END ==
LOC: M LAB REF 17:02
PROVIDERS: ATTEND Internal Medicine
DX: E03.9 Hypothyroidism, unspecified (principal)

== ENCOUNTER → 2023-07-25 | Outpatient (CLI) | payer BC | LOC: M WHC 10:02 | PROVIDERS: ATTEND Nurse Practitioner Family | DX: R92.8 Other abnormal and inconclusive findings on diagnostic imaging of breast (principal); Z12.31 Encounter for screening mammogram for malignant neoplasm of breast; Z80.3 Family history of malignant neoplasm of breast ==

== ENCOUNTER → 2023-08-20 | Outpatient (CLI) | payer BC | LOC: M RAD 11:08 | PROVIDERS: ATTEND Surgery Vascular Surgery | DX: I83.813 Varicose veins of bilateral lower extremities with pain (principal); I87.2 Venous insufficiency (chronic) (peripheral) ==

== ENCOUNTER → 2023-10-24 | Outpatient (REF) | payer BC ==
[2023-10-24 13:09] LABS: ALKALINE PHOSPHATASE 64 U/L (46-116); ALT/SGPT 11 U/L (7.0-40); AST/SGOT 10 U/L (<34); BILIRUBIN,TOTAL 0.6 MG/DL (0.3-1.2); BLOOD UREA NITROGEN 11 MG/DL (9-23); CARBON DIOXIDE LEVEL 27 MMOL/L (20-31); CHLORIDE LEVEL 106 MMOL/L (98-107); CREATININE FOR GFR 0.66 MG/DL (0.55-1.30); FREE T4 1.57 NG/DL (0.89-1.76); GLOMERULAR FILTRATION RATE > 60.0 (>51); GLUCOSE, FASTING 46 MG/DL (60-100); POTASSIUM SERUM 4.1 MMOL/L (3.5-5.1); SODIUM LEVEL 138 MMOL/L (136-145); THYROID STIMULATING HORMONE 0.127 uIU/ML (0.55-4.78); TOTAL 25(OH) VITAMIN D 38.6 NG/ML (20.0-100.0)
== END ==
LOC: M LAB REF 12:10
PROVIDERS: ATTEND Internal Medicine
DX: F41.1 Generalized anxiety disorder (principal); E03.9 Hypothyroidism, unspecified; E55.9 Vitamin D deficiency, unspecified

== ENCOUNTER → 2024-01-11 | Outpatient (REF) | payer OTHER ==
[~2024-01-11] MED LIST changes: -KLON0.5T PO; +KLON0.5T8 PO
[2024-01-11 12:29] LABS: BASO % 0.8 % (0.0-1.0); EOS # 0.2 10^3/uL (0.0-0.5); EOS % 4.1 % (0.0-3.0); HEMATOCRIT 38.8 % (36.0-47.0); HEMOGLOBIN 12.5 g/dl (12.0-15.5); LYMPH # 0.8 10^3/uL (1.5-5.0); LYMPH % 16.9 % (24.0-44.0); MEAN CORPUSCULAR HEMOGLOBIN 30.5 pg (27.0-33.0); MEAN CORPUSCULAR HGB CONC 32.2 g/dl (32.0-36.5); MEAN CORPUSCULAR VOLUME 94.6 fl (80.0-96.0); MONO # 0.3 10^3/uL (0.0-0.8); MONO % 6.9 % (2.0-8.0); NEUTROPHILS # 3.5 10^3/uL (1.5-8.5); NEUTROPHILS % 70.9 % (36.0-66.0); PLATELET COUNT, AUTOMATED 259 10^3/uL (150-450); WHITE BLOOD COUNT 4.9 10^3/uL (4.0-10.0)
[2024-01-11 13:03] LABS: ALBUMIN 3.8 G/DL (3.2-5.2); ALKALINE PHOSPHATASE 58 U/L (46-116); ALT/SGPT 15 U/L (7.0-40); AST/SGOT 9 U/L (<34); BILIRUBIN,TOTAL 0.4 MG/DL (0.3-1.2); BLOOD UREA NITROGEN 16 MG/DL (9-23); CALCIUM LEVEL 8.1 MG/DL (8.5-10.1); CARBON DIOXIDE LEVEL 28 MMOL/L (20-31); CHLORIDE LEVEL 106 MMOL/L (98-107); CREATININE FOR GFR 0.71 MG/DL (0.55-1.30); GLOMERULAR FILTRATION RATE > 60.0 (>51); GLUCOSE, FASTING 85 MG/DL (60-100); POTASSIUM SERUM 4.8 MMOL/L (3.5-5.1); SODIUM LEVEL 138 MMOL/L (136-145); TOTAL PROTEIN 6.8 G/DL (5.7-8.2)
[2024-01-11 13:04] LABS: THYROID STIMULATING HORMONE 1.426 uIU/ML (0.55-4.78)
[2024-01-11 13:05] LABS: FREE T4 1.38 NG/DL (0.89-1.76)
== END ==
LOC: M LAB REF 11:57
PROVIDERS: ATTEND Internal Medicine
DX: E03.9 Hypothyroidism, unspecified (principal)

== ENCOUNTER → 2024-07-14 | Outpatient (REF) | payer OTHER ==
[~2024-07-14] MED LIST changes: +FLUO-365 PO; -FLUO20CA22 PO
[2024-07-14 14:34] LABS: BASO % 0.8 % (0.0-1.0); C REACTIVE PROTEIN QUANTITATIV < 0.40 MG/DL (<1.0); EOS # 0.3 10^3/uL (0.0-0.5); EOS % 6.3 % (0.0-3.0); HEMOGLOBIN 12.2 g/dl (12.0-15.5); LYMPH # 0.9 10^3/uL (1.5-5.0); MEAN CORPUSCULAR HEMOGLOBIN 30.3 pg (27.0-33.0); MEAN CORPUSCULAR HGB CONC 32.1 g/dl (32.0-36.5); MEAN CORPUSCULAR VOLUME 94.3 fl (80.0-96.0); MONO # 0.3 10^3/uL (0.0-0.8); MONO % 6.7 % (2.0-8.0); NEUTROPHILS # 3.3 10^3/uL (1.5-8.5); PLATELET COUNT, AUTOMATED 297 10^3/uL (150-450); RED BLOOD COUNT 4.03 10^6/uL (4.00-5.40); WHITE BLOOD COUNT 4.9 10^3/uL (4.0-10.0)
[2024-07-14 14:36] LABS: ALBUMIN 3.9 G/DL (3.2-5.2); ALKALINE PHOSPHATASE 76 U/L (46-116); ALT/SGPT 19 U/L (7.0-40); AST/SGOT 14 U/L (<34); BILIRUBIN,TOTAL 0.4 MG/DL (0.3-1.2); BLOOD UREA NITROGEN 19 MG/DL (9-23); CALCIUM LEVEL 9.2 MG/DL (8.5-10.1); CARBON DIOXIDE LEVEL 26 MMOL/L (20-31); CHLORIDE LEVEL 109 MMOL/L (98-107); CHOLESTEROL LEVEL 222 MG/DL (<200); CHOLESTEROL RISK RATIO 3.32 (<5); CREATININE FOR GFR 0.71 MG/DL (0.55-1.30); GLOMERULAR FILTRATION RATE > 60.0 (>51); GLUCOSE, FASTING 87 MG/DL (60-100); HDL CHOLESTEROL 66.8 MG/DL (>40); LDL CHOLESTEROL 136.4 MG/DL (<100); NON-HDL-C 155.2 MG/DL; POTASSIUM SERUM 3.8 MMOL/L (3.5-5.1); SODIUM LEVEL 141 MMOL/L (136-145); TOTAL PROTEIN 7.3 G/DL (5.7-8.2); TRIGLYCERIDES LEVEL 94 MG/DL (<150)
[2024-07-14 14:43] LABS: ERYTHROCYTE SEDIMENTATION RATE 12 mm/hr (0-30)
[2024-07-14 14:44] LABS: IMMUNOGLOBULIN A 165.7 MG/DL (40-350); RHEUMATOID FACTOR QUANT 12.8 IU/ML (<14)
[2024-07-14 14:47] LABS: THYROID PEROXIDASE ANTIBODY 394 U/ML (<60.0)
[2024-07-14 14:56] LABS: URIC ACID 4.6 MG/DL (3.1-7.8)
[2024-07-16 14:07] LABS: CYCLIC CITRULLINATED PEPTIDE < 16 UNITS (<20)
[2024-07-16 14:46] LABS: ANA SCREEN, IFA POSITIVE (NEGATIVE)
[2024-07-17 02:51] LABS: TISSUE TRANSGLUTAMINASE IgA < 1.0 U/mL (<15.0)
== END ==
LOC: M LAB REF 12:49
PROVIDERS: ATTEND Internal Medicine
DX: Z00.00 Encounter for general adult medical examination without abnormal findings (principal); E03.9 Hypothyroidism, unspecified; M06.4 Inflammatory polyarthropathy

== ENCOUNTER → 2024-07-28 | Outpatient (CLI) | payer BC, OTHER | LOC: M WHC 09:33 | PROVIDERS: ATTEND Nurse Practitioner Family | DX: Z12.31 Encounter for screening mammogram for malignant neoplasm of breast (principal) ==

== ENCOUNTER → 2024-08-12 | Outpatient (CLI) | payer OTHER ==
[2024-08-12 17:49] LABS: HEMATOCRIT 36.5 % (36.0-47.0); HEMOGLOBIN 11.7 g/dl (12.0-15.5); MEAN CORPUSCULAR HEMOGLOBIN 29.3 pg (27.0-33.0); MEAN CORPUSCULAR HGB CONC 32.1 g/dl (32.0-36.5); MEAN CORPUSCULAR VOLUME 91.5 fl (80.0-96.0); PLATELET COUNT, AUTOMATED 293 10^3/uL (150-450); RED BLOOD COUNT 3.99 10^6/uL (4.00-5.40)
[2024-08-12 18:07] LABS: LIPASE 37 U/L (12-53)
[2024-08-12 18:08] LABS: AMYLASE 74 U/L (30-118)
[2024-08-12 18:09] LABS: ALBUMIN 3.7 G/DL (3.2-5.2); ALKALINE PHOSPHATASE 87 U/L (46-116); ALT/SGPT 18 U/L (7.0-40); AST/SGOT 11 U/L (<34); BILIRUBIN,TOTAL 0.4 MG/DL (0.3-1.2); BLOOD UREA NITROGEN 18 MG/DL (9-23); CALCIUM LEVEL 9.1 MG/DL (8.5-10.1); CARBON DIOXIDE LEVEL 25 MMOL/L (20-31); CHLORIDE LEVEL 106 MMOL/L (98-107); CHOLESTEROL LEVEL 227 MG/DL (<200); CHOLESTEROL RISK RATIO 4.24 (<5); CREATININE FOR GFR 0.72 MG/DL (0.55-1.30); GLOMERULAR FILTRATION RATE > 60.0 (>51); GLUCOSE, FASTING 83 MG/DL (60-100); HDL CHOLESTEROL 53.5 MG/DL (>40); LDL CHOLESTEROL 135.7 MG/DL (<100); NON-HDL-C 173.5 MG/DL; POTASSIUM SERUM 4.1 MMOL/L (3.5-5.1); SODIUM LEVEL 138 MMOL/L (136-145); TOTAL PROTEIN 7.3 G/DL (5.7-8.2); TRIGLYCERIDES LEVEL 189 MG/DL (<150)
[2024-08-12 18:11] LABS: THYROID STIMULATING HORMONE 2.439 uIU/ML (0.55-4.78); THYROXINE (T4) 11.3 UG/DL (4.5-10.9)
[2024-08-12 18:13] LABS: FREE T3 2.5 PG/ML (2.3-4.2)
[2024-08-12 18:42] LABS: HEMOGLOBIN A1c 5.1 % (4.0-6.0)
== END ==
LOC: M PLALAB 16:31
PROVIDERS: ATTEND Physician Assistant
DX: E66.3 Overweight (principal)

== ENCOUNTER → 2024-11-21 | Outpatient (REF) | payer OTHER ==
[2024-11-21 13:13] LABS: PERCENT SATURATION 10.8 % (13.2-45.0)
[2024-11-21 13:17] LABS: FERRITIN 10.4 NG/ML (7.3-270.7)
== END ==
LOC: M LAB REF 12:10
PROVIDERS: ATTEND Internal Medicine
DX: D64.9 Anemia, unspecified (principal); R06.00 Dyspnea, unspecified

== ENCOUNTER 2024-12-02 17:18 | Emergency (ER) | payer OTHER ==
[~2024-12-02] VITALS: Ht 170.2 cm; Wt 88.6 kg
[2024-12-02 18:45] LABS: BASO % 0.6 % (0.0-1.0); EOS # 0.3 10^3/uL (0.0-0.5); EOS % 5.1 % (0.0-3.0); HEMATOCRIT 35.3 % (36.0-47.0); HEMOGLOBIN 11.4 g/dl (12.0-15.5); LYMPH # 1.3 10^3/uL (1.5-5.0); LYMPH % 20.8 % (24.0-44.0); MEAN CORPUSCULAR HEMOGLOBIN 29.5 pg (27.0-33.0); MEAN CORPUSCULAR HGB CONC 32.3 g/dl (32.0-36.5); MEAN CORPUSCULAR VOLUME 91.5 fl (80.0-96.0); MONO # 0.4 10^3/uL (0.0-0.8); MONO % 5.9 % (2.0-8.0); NEUTROPHILS # 4.2 10^3/uL (1.5-8.5); NEUTROPHILS % 67.3 % (36.0-66.0); PLATELET COUNT, AUTOMATED 284 10^3/uL (150-450); RED BLOOD COUNT 3.86 10^6/uL (4.00-5.40); WHITE BLOOD COUNT 6.3 10^3/uL (4.0-10.0)
[2024-12-02 19:07] LABS: BLOOD UREA NITROGEN 17 MG/DL (9-23); CALCIUM LEVEL 8.1 MG/DL (8.5-10.1); CARBON DIOXIDE LEVEL 27 MMOL/L (20-31); CHLORIDE LEVEL 105 MMOL/L (98-107); CK-MB VALUE MASS < 1.0 NG/ML (<3.6); CPK CREATINE PHOSPHOKINASE 120 U/L (34-145); CREATININE FOR GFR 0.68 MG/DL (0.55-1.30); GLOMERULAR FILTRATION RATE > 60.0 (>51); GLUCOSE, FASTING 98 MG/DL (60-100); MB/CK RELATIVE INDEX 0.83 (< OR =4); POTASSIUM SERUM 3.9 MMOL/L (3.5-5.1); SODIUM LEVEL 142 MMOL/L (136-145)
[2024-12-02] MEDS ORDERED: ISOVUE-370 76% 100ML VIAL As Ordered ONE (19:51)
[2024-12-02 19:54] LABS: CK-MB VALUE MASS < 1.0 NG/ML (<3.6); CPK CREATINE PHOSPHOKINASE 109 U/L (34-145); MB/CK RELATIVE INDEX 0.91 (< OR =4)
[2024-12-02 21:45] VITALS: BP 119/62; O2SAT 97
[2024-12-02 21:57] VITALS: TEMP 97.6
== END 2024-12-02 21:56 | disposition home or self-care (01) ==
LOC: M ED 17:18
DX: R68.84 Jaw pain (principal); K08.89 Other specified disorders of teeth and supporting structures; K76.89 Other specified diseases of liver; E03.9 Hypothyroidism, unspecified; M19.90 Unspecified osteoarthritis, unspecified site; F41.9 Anxiety disorder, unspecified; F32.A Depression, unspecified; K21.9 Gastro-esophageal reflux disease without esophagitis; Z79.890 Hormone replacement therapy; Z79.899 Other long term (current) drug therapy
CPT/HCPCS: 36415; 71045; 71275; 80048; 82550; 82553; 84484; 85025; 93005; 93041; 93970; 94760; 99285; Q9967

== ENCOUNTER → 2024-12-30 | Outpatient (CLI) | payer OTHER ==
[~2024-12-30] MED LIST changes: +METHACHOLINE KIT (6 VIAL.NEB PREMIX) INH ONE
== END ==
LOC: M CARPUL 09:51
PROVIDERS: ATTEND Internal Medicine
DX: R06.2 Wheezing (principal)
CPT/HCPCS: 94070; 95070; J7674

== ENCOUNTER → 2025-07-22 | Outpatient (REF) | payer OTHER ==
[~2025-07-22] MED LIST changes: -METHACHOLINE KIT (6 VIAL.NEB PREMIX) INH ONE
[2025-07-22 14:41] LABS: IRON (FE) 55.0 UG/DL (50-170); PERCENT SATURATION 14.7 % (13.2-45.0)
== END ==
LOC: M LAB REF 14:11
PROVIDERS: ATTEND Internal Medicine
DX: D50.9 Iron deficiency anemia, unspecified (principal)

== ENCOUNTER → 2025-08-10 | Outpatient (CLI) | payer OTHER | LOC: M WHC 08:22 | PROVIDERS: ATTEND Nurse Practitioner Family | DX: Z12.31 Encounter for screening mammogram for malignant neoplasm of breast (principal); R92.333 Mammographic heterogeneous density, bilateral breasts ==